=== PATIENT | female | born 1935 | race Caucasian/White ===

== ENCOUNTER → 2020-07-24 11:20 | Outpatient (CLI) | payer MEDICARE, SELFPAY ==
[2020-07-24 13:36] LABS: COVID19 -Nasal RAPID Negative (Negative)
== END ==
PROVIDERS: Visit Provider Physician Assistant
DX: Z20.822 Contact with and (suspected) exposure to COVID-19 (principal)
CPT/HCPCS: 87635; C9803

== ENCOUNTER 2020-07-25 08:42 | Day surgery (SDC) | payer MEDICARE, OTHER, SELFPAY ==
[2020-07-25] VITALS (15 sets, daily range): BP systolic 132–183; BP diastolic 45–83; PULSE 45–62; RESP 9–16; TEMP 35.6–36.6; O2SAT 92–99; BMI 35.5; BMI 36.3
--- NOTE | 2020-07-25 06:00 | DI.RAD.S_ITS ---
PROCEDURE: XR KNEE LT 1TO2V INDICATIONS: post op Total knee arthroplasty TECHNIQUE: 2 view(s) of the knee acquired. COMPARISON: [facility] [place], CR, XR KNEE ARTHRITIC SERIES LT, 11/29/2019, 9:12. [facility] [place], CR, XR KNEE ARTHRITIC SERIES BI, 03/02/2019, 11:04. [facility], RG, KNEE 3VW (LT), 01/20/2019, 8:38. FINDINGS: Bones: Patient is status post knee joint arthroplasty. Hardware components are in expected positions. Visualized bony structures are intact. Soft tissues: Overlying postoperative changes are noted. IMPRESSION: Left knee prosthesis in anatomic alignment. Dictated by: Haris Carrillo M.D. on 07/25/2020 at 17:00 Approved by: Haris Carrillo M.D. on 07/25/2020 at 17:00
[2020-07-25] MEDS: ACETAMINOPHEN 325 MG TABLET 975 MG PO (09:32)
[2020-07-25] MEDS: CELECOXIB 200 MG CAPSULE PO (09:32)
[2020-07-25] MEDS: PREGABALIN 75 MG CAPSULE PO (09:32)
[2020-07-25] MEDS: LACTATED RINGERS 1,000 ML 42 ML IV (09:37)
--- NOTE | 2020-07-25 10:11 | PM.PREOP ---
Pre-operative Note Interval Note History & Physical reviewed/Exam performed by Physician: Yes Changes to H&P: No
--- NOTE | 2020-07-25 10:48 | PM.OP.1 ---
Operative Date/Time/Diagnoses Date of procedure: 07/25/20 Time of procedure: 10:58 Pre-op diagnosis: Left knee osteoarthritis Post-op diagnosis: same Procedure & Clinicians Procedure: left total knee arthroplasty Same procedure as scheduled: Yes Indications: The patient has had progressively worsening left knee pain with radiographic changes consistent with arthritis. Non-operative management has failed and the patient has requested total knee replacement. The risks, benefits and alternatives to surgery were discussed with the patient prior to proceeding. Risks discussed included, but were not limited to, failure to relieve pain, stiffness, infection, nerve damage, deep venous thrombosis, pulmonary embolism, stroke, coma, heart attack, permanent paralysis and , as well as the potential need for eventual revision of the prosthetic. Surgeon: Leena Ruffin Senior Shipping Clerk: Filiberto Mckeon Anesthesia Type: General and Spinal Operative Notes Findings: severe left knee osteoarthritis Closure Type: primary Specimen(s): none sent Prosthetic devices, grafts, tissues, transplants, or devices: Journey BCS 2 size 5 femur, size 5 tibia, +10 poly, 35 by 7-1/2 mm patella Applied: drain(s) Estimated Blood Loss (mL): 250 Blood products transfused: none Tourniquet time (min): 83 Procedure in detail: The patient was seen in the pre-operative area, where the patient identified the left knee as the operative site and this was marked with my initials. The patient received pre-operative antibiotics, and was taken to the operating room and placed on the operative table in the supine position. After satisfactory anesthesia, a registered phlebotomist part time out was performed. The left leg was encircled with a tourniquet about the proximal thigh, and the leg was prepared from the toes to the tourniquet with ChloroPrep in the usual fashion and draped through sterile drapes. The leg was elevated and exsanguinated with Eschmark bandage and the tourniquet inflated to [250] mmHg pressure. The knee was approached through an approximately 18 cm incision centered over the patella and carried into the knee through a medial parapatellar arthrotomy. A portion of the medial and lateral meniscus was resected. Soft tissue was carefully mobilized around the patella the patella was measured with a caliper. Bone was resected from the patella and the patellar height was reconstituted with up an appropriate sized patellar component. A cover was then placed on the patella. A small amount of additional medial and lateral meniscus was resected. The distal femur was cut at 5?. A [+2] cut was used. It looked like an appropriate distal femoral cut and the cut was made without difficulty. An extramedullary guide was used for the tibial cut. 8 mm was resected off the least affected side.The tibia was prepared. The rotation was assessed. The patient was placed in extension residual medial and lateral meniscus as well as any residual bone was carefully resected. [No] additional tibia was resected. Hemostasis was achieved especially posteriorly. Additional local was injected into the posterior capsule. The extension gap was assessed and additional releases for gap balancing were performed as necessary. It was checked with the gap pin machine tender. The femoral rotation was assessed as was the gap balancing. I checked a both with the gap pin machine tender as well as a measured resection. Made drill holes in the femoral component and then compare the 2 I have wanted to do about 40? of external rotation and I prefer the gap balancing positioning of the medial hole. I subsequently replaced the measured resection guide and put in 4? of external rotation. The femur was sized at a size 5. The rotation was assessed and the appropriate size femoral guide was placed on the distal femur and finishing cuts were made. There was no evidence of notching. The anterior, posterior and chamfer cuts were then made. The posterior osteophytes and soft tissues were then removed. The notch was finished. The posterior capsule was injected with part of a mixture of 60 ml 0.25% Marcaine mixed with 20 ml Exparel for post operative pain control. The remainder of this mixture was injected into the capsule and subcutaneous tissues during cement curing. The tibial and femoral components were then placed and the knee placed through a range of motion. Range of motion was [0-130], with good stability throughout the range. The trials were then removed, and the tibia was finished. The bone was prepared with pulsatile lavage, and dried with a sponge. Cement was applied and the final prosthetics placed. Excess cement was removed during and after cement curing. A brief Betadine soak was performed. After confirming there was no extruded cement posteriorly, the final tibial insert was placed. The knee was copiously irrigated and the tourniquet deflated. Hemostasis was obtained with the Bovie. A drain was placed and brought out superolaterally. The capsule was closed with interrupted nonabsorbable suture. The subcutaneous layer was closed with barbed sutures, and the skin with a running 3-0 V-Lock suture and Surgical glue. An Aquacel Ag dressing was applied and the patient was taken to recovery having tolerated the procedure well. Complications: none Post-operative Condition: stable Disposition: Acute Care Plan for aftercare: The patient will be maintained on a standard total knee replacement protocol with weight bearing as tolerated. The patient will receive aspirin and sequential compression devices for DVT prophylaxis. The patient will be discharged home when safe for the home environment.
--- NOTE | 2020-07-25 10:55 | PC.NURSE ---
Day shift: Pt not on AC unit at this time (1100).
[2020-07-25] MEDS: CEFAZOLIN 2 GM/100 ML FROZ.PIGGY IV ×2 (11:00→21:04)
[2020-07-25] MEDS: TRANEXAMIC ACID 1,000 MG VIAL 1000 MG INJ ×2 (11:15→13:00)
--- NOTE | 2020-07-25 11:41 | SUR.OPER ---
Supine on padded OR bed. Pillow under head, arms secured on padded armboards <90 degree abduction. Safety belt across torso. Non-operative leg secured with tape over blanket over lower leg. Operative leg secured in DeMayo/Duc positioner. Foam padded brace at thigh of operative leg. Operative leg in control of the surgeon.
[2020-07-25] MEDS: BUPIVACAINE 0.5% W/ EPI (PF) 30 ML VIAL INJ (11:52)
[2020-07-25] MEDS: BUPIVACAINE LIPOSOME 266 MG/20 ML VIAL INJ (11:52)
[2020-07-25] MEDS: VANCOMYCIN 1,000 MG/200 ML PIGGYBACK 200 MG IV (11:59)
[2020-07-25] MEDS: SODIUM CHLORIDE IRRIG SOLUTION 250 ML, POVIDONE-IODINE SPONGE STICKS 1 APPLIC IRR (12:04)
--- NOTE | 2020-07-25 14:13 | SUR.PHASEI ---
Pt arrived to PACU, chin lift needed for short time for airway patency, nasal 02 added, now weaned off. Stable Pacu stay, report called to SIOBHAN Mora
--- NOTE | 2020-07-25 14:26 | PC.NURSE ---
Day shift: Pt on unit at approx 1425 from PACU. She is A&Ox4. VS WNL. RA 95%. HALLEY wrap and Aquacel CDI. Lukasz-vac unclamped at 1430 per OPERATIONS CHIEF. CMS ok. Can move feet and toes. PPP. Tolerating cald SCD's. Nausea and emesis when here on unit but that resolved quickly. Did not give any meds. Ice water at bedside. IV fluids per JUL. Instructed Pt to let RN know if and when pain 08/19. Pt agrees to not get OOB w/o help from staff. CPAP in room. Last BG in PACU 142. Needs O2 levels monitored per protocol. Oriented to room and call light by RRT. Bed alrm is on. High fall risk for now. Will continue to monitor and continue w/ post-op plan of care.
--- NOTE | 2020-07-25 14:44 | SUR.PHASEI ---
Pt transported up to room 215, pt became nauseated and vomited 30ml of white creamy liquid. Nausea resolved w/o treatment, pt left in stable condition. Bed low, locked, SCDs on and call [facility] reach.
[2020-07-25] MEDS: LACTATED RINGERS 1,000 ML 100 ML IV ×2 (14:53→23:19)
[2020-07-25] MEDS: ONDANSETRON 4 MG/2 ML INJ IV (14:54)
[2020-07-25] MEDS: METOCLOPRAMIDE 10 MG/2 ML INJ IV (16:53)
--- NOTE | 2020-07-25 16:59 | PC.NURSE ---
Pt having some Nause at this time. Med w/reglan as per orders, Will assess. Call light w/in reach, bed alarm on for pt safety.
[2020-07-25] MEDS: IBUPROFEN 400 MG TABLET PO (19:48)
[2020-07-25] MEDS: OXYCODONE IR 5 MG TABLET PO (21:04)
[2020-07-25] MEDS: ASPIRIN EC 81 MG TABLET PO (21:04)
[2020-07-25] MEDS: ACETAMINOPHEN 325 MG TABLET 650 MG PO (21:04)
[2020-07-25] MEDS: METFORMIN HCL 500 MG TABLET PO (21:05)
[2020-07-25] MEDS: DOCUSATE 100 MG CAPSULE PO (21:05)
[2020-07-25] MEDS: carvediloL 12.5 MG TABLET 50 MG PO (21:16)
[2020-07-26 00:08] VITALS: BP 155/67; PULSE 54; RESP 18; TEMP 36.2; O2SAT 96
[2020-07-26] MEDS: IBUPROFEN 400 MG TABLET PO ×4 (00:21→12:10)
[2020-07-26] MEDS: CEFAZOLIN 2 GM/100 ML FROZ.PIGGY IV (02:51)
[2020-07-26] MEDS: OXYCODONE IR 5 MG TABLET PO (03:10)
[2020-07-26] MEDS: ONDANSETRON 4 MG ODT PO (03:42)
[2020-07-26 04:10] VITALS: BP 135/59; PULSE 52; RESP 16; TEMP 36.1; O2SAT 97
[2020-07-26 05:45] LABS: Hematocrit 32.5 % (36-46); Hemoglobin 10.6 g/dL (12.0-16.0)
[2020-07-26 08:00] VITALS: BP 160/60; PULSE 52; RESP 15; TEMP 36.2; O2SAT 98
--- NOTE | 2020-07-26 08:29 | PM.DS.1 ---
History of Present Illness History of Present Illness Date Patient Seen: 07/26/20 Time Patient Seen: 08:29 Chief complaint: OPB Narrative: Please refer to HPI in chart. Discharge Providers Provider Discharge Date: 07/26/20 Primary care physician: ROMELIA Kay Consults: 07/19/20 15:31 Consult to Respiratory Therapy Evaluate & Treat Comment: Will bring CPAP Physician Instructions: Evaluate and treat 07/25/20 06:00 Consult to Anesthesiology Routine Comment: Consulting Provider: Anesthesiologist Reason for consultation: Regional block for post operative pain control 07/25/20 09:51 Consult to Respiratory Therapy Evaluate & Treat Comment: Physician Instructions: Evaluate and treat 07/25/20 14:26 Consult to Discharge Planning Routine Comment: Consult to Physical Therapy Evaluate & Treat Comment: Physician Instructions: postop TKA protocol Consult to Respiratory Therapy Evaluate & Treat Comment: Physician Instructions: Evaluate and treat Discharge provider: Filiberto Mckeon PA-C Summary Hospital Course Discharge Diagnosis: Left knee osteoarthritis Status post left total knee arthroplasty Hospital Course: 84-year-old female was appropriately consented for the above listed diagnoses and presented to the OR undergoing associated procedure without difficulty or complication and admitted to hospital for overnight rehabilitation including pain management and PT/OT to confirm safe disposition home. On postoperative day 1 the patient was evaluated and in stable condition for discharge denying any fever, chills, chest pain, shortness of breath, intractable pain or related postoperative neurovascular complaint. Her wound was clean dry and intact and she verbalized understanding all postoperative care instructions. Status at Discharge Cognitive/behavioral status at discharge: oriented Functional status at discharge: uses cane/walker Overall status at discharge: patient is progressing back to baseline Time Spent with Patient Time spent: Less than 30 minutes Exam Vital Signs (past 8 hours): - 07/26/20 04:10 Temperature 97.0 F L Pulse Rate 52 L Respiratory Rate 16 Blood Pressure 135/59 L Pulse Oximetry 97 Oxygen Delivery Method Room Air Oxygen Flow Rate 0 Narrative Exam Narrative: Observed lying comfortable in bed in no apparent distress, alert and oriented x3. Calves soft, compressible and nontender bilaterally. Distal affected extremity is functional with Gómez and plantar flexion strength grossly intact as well as her neurovascular exam was within normal limits including sensation and 2+ distal pulses. Her wound was clean dry and intact. Objective Labs Result Diagrams: 07/26/20 05:20 Labs: Laboratory Results - last 24 hr 07/26/20 05:20 Hgb 10.6 L Hct 32.5 L PFSH Medical History (Updated 07/24/20 @ 08:[address], RN) Bruises easily Diabetes mellitus Diverticulitis (~05/2020) Former smoker Frequent UTI History of anemia Hypertension Leg swelling Obesity Pulmonary hypertension PVC (premature ventricular contraction) Shingles (~2019) Shortness of breath Sleep apnea Tinnitus Unilateral primary osteoarthritis, left knee Surgical History (Updated 07/19/20 @ 15:[address], RN) H/O bilateral cataract extraction History of tubal ligation Social History household members: none Smoking Status: Former smoker alcohol intake: never Discharge Assessment & Plan Assessment and Plan Assessment: Left knee osteoarthritis Status post left total knee arthroplasty Plan of Treatment: 1. Total knee care protocol apply 2. Remove surgical drain. 3. PT/OT eval and treat for discharge. 4. Discharge home. 5. Follow-up in 2 weeks as scheduled or sooner as needed. Discharge Plan Discharge Plan Patient Disposition: Home Provider Discharge Comment: This afternoon after PT OT. Discharge orders & Medications Discharge Orders: Discharge (Order); Ordered 07/26/20 Ordered By: Filiberto Mckeon Prescriptions: New acetaminophen 500 mg capsule 1,000 mg PO QID Qty: 60 RF: 0 aspirin 81 mg Tablet,Delayed Release (Dr/Ec) 81 mg PO BID Qty: 60 RF: 0 ibuprofen 400 mg Tablet 400 mg PO Q4HR Qty: 60 RF: 0 ondansetron 4 mg Tablet,Disintegrating 4 mg PO Q4HR PRN (Reason: Nausea) Qty: 12 RF: 0 oxycodone 5 mg Tablet 5 mg PO Q4HR PRN (Reason: Pain, Moderate (4-6)) Qty: 60 RF: 0 Continued metformin 500 mg Tablet 500 mg PO BID RF: 0 carvedilol 25 mg Tablet 50 mg PO BID RF: 0 spironolactone 25 mg Tablet 25 mg PO DAILY RF: 0 omeprazole 20 mg Capsule,Delayed Release(Dr/Ec) 20 mg PO Q OTHER DAY RF: 0 aspirin 81 mg Tablet 81 mg PO BID RF: 0 losartan 100 mg Tablet 100 mg PO DAILY RF: 0 multivitamin Tablet 1 tab PO DAILY RF: 0 magnesium 200 mg Tablet 400 - 600 mg PO DAILY RF: 0 turmeric 1 tab PO BID RF: 0 Follow up/Referrals: Pamella Hughes ARNP [Primary Care Provider] - Leena Ruffin MD [Physician] - (2 weeks) Diet/Activity/Treatments Diet: Diet as Tolerated Activity: The patient will be maintained on a standard total knee replacement protocol with weight bearing as tolerated. Cold/Heat Therapy: Ice 20 minutes every hour as needed and tolerated. Skin/Wound/Dressing Care Report to your healthcare provider any signs of infection, such as:: chills, fever, night sweats, increased pain, unusual drainage and unusual redness Dressing: Call if dressings shoulder saturated. Visit Report/Discharge Packet Instructions: DI for Knee Replacement, Ondansetron, Oxycodone Stand Alone Forms: Patient Portal/API, Surgery Discharge Discharge Data Primary Care Provider: Pamella Hughes Attending Provider: Leena Ruffin
[2020-07-26] MEDS: DOCUSATE 100 MG CAPSULE PO (08:53)
[2020-07-26 08:54] VITALS: BP 160/60; PULSE 52
[2020-07-26] MEDS: LOSARTAN 50 MG TABLET 100 MG PO (08:54)
[2020-07-26] MEDS: MULTIVITAMIN 1 TABLET 1 TAB PO (08:54)
[2020-07-26] MEDS: ACETAMINOPHEN 325 MG TABLET 650 MG PO (08:54)
[2020-07-26] MEDS: ASPIRIN EC 81 MG TABLET PO (08:54)
[2020-07-26 08:55] VITALS: BP 160/60; PULSE 52
[2020-07-26] MEDS: MAGNESIUM OXIDE 400 MG TABLET PO (08:55)
[2020-07-26] MEDS: carvediloL 12.5 MG TABLET 50 MG PO (08:55)
[2020-07-26] MEDS: METFORMIN HCL 500 MG TABLET PO (08:55)
[2020-07-26] MEDS: SPIRONOLACTONE 25 MG TABLET PO (08:55)
--- NOTE | 2020-07-26 10:30 | PT.IIE ---
Current Diagnoses Type 2 diabetes mellitus without complications (07/25/20) Obesity, unspecified (07/25/20) Sleep apnea, unspecified (07/25/20) Surgery Performed Operation Date: 07/25/20 10:45 Actual Procedures p Total Knee Arthroplasty(Left) - Leena Ruffin MD Surgical History (Last Updated 07/19/20 @ 15:[address], RN) H/O bilateral cataract extraction History of tubal ligation Medical History (Last Updated 07/24/20 @ 08:[address], RN) Bruises easily Diabetes mellitus Diverticulitis (~05/2020) Former smoker Frequent UTI History of anemia Hypertension Leg swelling Obesity Pulmonary hypertension PVC (premature ventricular contraction) Shingles (~2018) Shortness of breath Sleep apnea Tinnitus Unilateral primary osteoarthritis, left knee Physical Therapy Inpatient Evaluation/Re-Eval M1 PT/OT-IP Prior Functional Status Start: 07/26/20 08:32 Freq: NEEDED Status: Active Protocol: Document 07/26/20 10:19 (Rec: 07/26/20 10:30 [id number]) Medical Review Prior Functional Status Medical History Reviewed Yes Diet/Fluid Consistency Regular Communication no deficits noted. able to make needs known Mobility and Gait uses SPC for outdoor mobility. No AD within home Activities of Daily Living and IADL's IND for ADLs and IADLs. Able to drive. Social History Household Members none Living Arrangements House Number of Floors (Floors) Two Floors Number of Stairs To Enter/Railing? pt stays on main floor with ramp to front entrance Home Environment High Toilet,Walk in Shower, Ramp Home Equipment Front Wheel Walker,Straight Cane,Raised Toilet Seat w/ Armrests,Hand Held Shower,Long Handled Shoe Horn,Deep Tissue Massage Therapist, Hospital Bed,Grab Bars Near Toilet,Grab Bars In Shower Employment Status Retired Additional Social History Comment pt is a whose passed a few months ago. Her dtr dedra and dtr in law from next door will stay with her to assist. Pt also has a friend to stay with her next week. Pt will go to [facility] starting from next week. M2 PT-IP Current Condition Start: 07/26/20 08:32 Freq: NEEDED Status: Active Protocol: Document 07/26/20 10:19 (Rec: 07/26/20 10:30 [id number]) Physical Therapy Current Condition Current Condition Evaluation Date 07/26/20 Treatment Diagnosis L TKA, difficulty in walking Onset Date 07/25/20 Weight Bearing Status Weight Bearing Status Weight Bear as Tolerated M3 PT-IP Subjective Start: 07/26/20 08:32 Freq: NEEDED Status: Active Protocol: Document 07/26/20 10:19 (Rec: 07/26/20 10:30 [id number]) Subjective Physical Therapy Visit Type Type Initial Evaluation Visit Start Time 09:00 Visit Stop Time 09:26 Total Visit Minutes 26 Number of PLATFORM LOADER Visits 0 Physical Therapy Visit Comments Patient Comments Im feeling pretty good Patient Goals to return home with dtr and dtr in law Therapy Pain Assessment Pain When Pain Assessed During Mobility Pain Present Pain Present Pain Reported Location Left Knee Intensity 5 Scale Used Numeric (0 - 10) Description Aching Pain Management Techniques Timing of Activity with Medications M4 PT-IP Mobility and Gait Start: 07/26/20 08:32 Freq: NEEDED Status: Active Protocol: Document 07/26/20 10:19 (Rec: 07/26/20 10:30 [email or web address]) PT-Bed Mobility Assessment Supine to Sit Supine to Sit Standby Assistance,Head of Bed Elevated Scooting Scooting to Edge of Bed Standby Assistance PT-Transfer Assessment Sit to and From Stand Sit to and from Stand Contact Guard Assistance,1 Person Assistance,Use of Upper Extremities Equipment Transfer Assistive Device Gait Belt,Front Wheeled Walker Transfers Transfer Destination Bed,Chair Transfer Technique Stand Step Pivot Transfer Ability Level of Assist Contact Guard Assistance,1 Person Assistance,Use of Upper Extremities Comments Mobility Comments Pt was in bed upon PT arrival. SIOBHAN Stewart came in to discharge hemovac and IV line. BP at 158 /62 and pt stated thats her baseline. her pain at 4/10 and agreed to mobilize with PT. Pt has adjustable bed at home so she got to sitting position at L EOB without using bedrails easily. She then stood up with FWW and pushed off through armrests safely. She practiced lateral weight shift and was able to maintain full knee extension on L. She then amb with FWW CGA and a step over gait for 20 ft, then progressed to step over gait. Pt shows minimal antalgic sign with a steady gait. Pt completed 100 ft x 2 and returned to bedside chair after. CGA for chair transfers with good descend. call light placed within reach. No increased discomfort noted. Gait Assessment Gait Gait Assistance Required: Contact Guard Assist Distance (Feet) 200 Able to Maintain Weight Bearing Status Yes During Gait Assistive Devices Assistive Device Gait Belt,Front Wheeled Walker Orthotic/Prosthetic Devices or Brace: No Gait Deviations General Gait Pattern Antalgic,Decreased Stride Length,Decreased Feet Clearance Factors Limiting Gait Function Factors Limiting Gait Function Decreased Activity Tolerance, Decreased Strength,Limited Range of Motion,Pain,Poor Balance Comments Gait Comments see mobility comments. Stair Climbing Assessment Comments Stair Climbing Comments no steps at home PT-Balance Assessment Sitting Balance and Reactions Static Sitting Balance Ability Normal Dynamic Sitting Balance Ability Normal Standing Balance and Reactions Static Standing Balance Ability Good Dynamic Standing Balance Ability Good Device Used FWW M5 PT-IP Objective Assessments Start: 07/26/20 08:32 Freq: NEEDED Status: Active Protocol: Document 07/26/20 10:19 (Rec: [facility]26/20 [email or web address] Orientation Orientation/Cognition Level of Alertness Alert Orientation Name,Age,Birthday,Month,Date, Year,Day of Week,Place, Situation Language Function Ability No Deficits Noted Safety Awareness Understands Safety Issues Memory Description No Deficits Noted Gross Range of Motion Upper Extremity ROM Assessment Within Functional Limits Lower Extremity ROM Assessment Left Impaired Impairments L knee AROM 3- 110 degrees Strength Upper Extremity Strength Assessment Within Functional Limits Lower Extremity Strength Assessment Left Impaired Knee 4-/5 Coordination Assessment Gross Coordination Gross Coordination WNL Sensation Assessment Sensation Gross Sensation WNL Muscle Tone Muscle Tone WNL Yes M6 PT-IP Treatment Start: 07/26/20 08:32 Freq: NEEDED Status: Active Protocol: Document 07/26/20 10:19 HH (Rec: 07/26/20 10:30 [email or web address]) Physical Therapy Treatment Exercises Exercises Ankle Pumps,Gluteal Sets,Quad Sets,Heel Slides,Straight Leg Raises Education Education Provided Precautions,Weight Bearing Status,Post-Op Packet,Safety Other Treatments Other Treatment Performed adjusted pt's FWW appropriately to her height. M7 PT-IP Assessment and Plan Start: 07/26/20 08:32 Freq: NEEDED Status: Active Protocol: Document 07/26/20 10:19 (Rec: 07/26/20 10:30 [email or web address] PT Summary Assessment and Plan Potential Rehabilitation Potential Excellent Status of Condition at Evaluation Stable Summary Impairments Pain,ROM,Strength,Balance,Bed Mobility,Transfers,Gait, Activity Tolerance Progress Towards Goals Safe For Discharge Assessment Summary pt is a 84yo female s/p POD1 L TKA. PLOF= IND with all ADLs and IADLs and uses SPC for outdoor mobility. CLOF= pt is CGA for all mobility and she was steady with her FWW with minimal antalgic sign. She is safe to be DC home with family 's assistance and outpatient PT to improve her mobility and strength. Frequency of Treatment Frequency Of Treatment Discharge Recommendations To Nursing Amount of Assist Needed 1 Person Assist Discharge Recommendations PT Discharge Recommendations Home with Assistance, Outpatient PT Transportation Needs at Discharge Private Vehicle
--- NOTE | 2020-07-26 11:14 | CM.DANOTE ---
DCP: Case received, EMR reviewed and met with patient. Introduced self and role. Was able to obtain information from patient regarding her baseline activity status prior to surgery, as well as her current living situation. DCP assessment completed with information currently available. Patient is an 84 year old female who admitted yesterday morning to the care of the orthopedic team. PCP: Dr. Hughes at [facility]. Payer: confirmed: Medicare Patient came to the hospital for a surgical procedure. She had a left total knee replacement. Patient has history of left knee osteoarthritis. Met with patient in her room. She was sitting up in bed, alert and oriented, pleasant. She resides alone in [place], on [address]. She is a , stated that her a few months ago. She has a cane that she mainly uses when she goes out in public. She drives. Discussed home support post surgery. She indicated that her [id number] will be staying with her until her daughter arrives. She also has a son, and friends that can also give her assistance. She is set up with outpatient P.T. in [place]. P: Patient is to be discharged home today. She will need to be cleared by P.T. here at the hospital prior. Sandy Rm RN/Ophthalmology Technician
[2020-07-26 11:31] VITALS: BP 158/62; PULSE 62; RESP 15; TEMP 36.6; O2SAT 99
--- NOTE | 2020-07-26 11:52 | PC.NURSE ---
Discharge education given to pt and son, discussed- medications and med safety, activity, diet, s/s of infection, dressing care, s/s of stroke, f/u appts. Pt and son expressed understanding, all questions answered. IV removed, intact, tolerated well. Hemovac removed, tolerated well, gauze/tegaderm dressing placed. Pt dressed with WHITE SOURER assistance, all belongings packed and sent with pt. Pt left via w/c to son's POV, accompanied by WHITE SOURER.
== END 2020-07-26 12:17 | disposition home or self-care (01) ==
LOC: OR 08:46 → AC 08:48
PROVIDERS: PCP Nurse Practitioner; Referring Provider Orthopaedic Surgery; Visit Provider Orthopaedic Surgery
PROC: 0SRD0JZ Replacement of Left Knee Joint with Synthetic Substitute, Open Approach (ICD-10-PCS; CPT 27447; principal; 2020-07-25 10:45)
DX: M17.12 Unilateral primary osteoarthritis, left knee (principal); I10 Essential (primary) hypertension; E11.9 Type 2 diabetes mellitus without complications; E66.9 Obesity, unspecified; G47.30 Sleep apnea, unspecified; Z79.84 Long term (current) use of oral hypoglycemic drugs
CPT/HCPCS: 27447; 36415; 73560; 82962; 85014; 85018; 94762; 97161; C1776; C9290; J0690; J1100; J2250; J2274; J2405; J2704; J2765; J3010